=== PATIENT | female | born 1965 | race Caucasian/White ===

== ENCOUNTER → 2017-01-18 | Outpatient (CLI) | payer MEDICAID | LOC: FIMAGING 14:45 | PROVIDERS: ATTEND Surgery | DX: Z12.31 Encounter for screening mammogram for malignant neoplasm of breast (principal); Z85.3 Personal history of malignant neoplasm of breast | CPT/HCPCS: G0202 ==

== ENCOUNTER → 2017-01-23 | Outpatient (CLI) | payer MEDICAID | LOC: FIMAGING 09:37 | PROVIDERS: ATTEND Surgery | DX: R92.0 Mammographic microcalcification found on diagnostic imaging of breast (principal) | CPT/HCPCS: G0206 ==

== ENCOUNTER → 2017-07-31 | Outpatient (CLI) | payer MEDICAID | LOC: FIMAGING 10:13 | PROVIDERS: ATTEND Internal Medicine | DX: R92.8 Other abnormal and inconclusive findings on diagnostic imaging of breast (principal) | CPT/HCPCS: G0206 ==

== ENCOUNTER → 2018-01-24 | Outpatient (CLI) | payer MEDICAID | LOC: FIMAGING 14:22 | PROVIDERS: ATTEND Internal Medicine | DX: Z12.31 Encounter for screening mammogram for malignant neoplasm of breast (principal); Z85.3 Personal history of malignant neoplasm of breast ==

== ENCOUNTER → 2018-01-31 | Outpatient (CLI) | payer MEDICAID | LOC: FIMAGING 09:04 | PROVIDERS: ATTEND Internal Medicine | DX: R92.0 Mammographic microcalcification found on diagnostic imaging of breast (principal) ==

== ENCOUNTER 2018-09-23 12:01 | Emergency (ER) | payer SELFPAY ==
--- NOTE | 2018-09-23 12:39 | EDPHY ---
General Time Seen by Provider: 09/23/18 12:38 Narrative: CLINICAL IMPRESSION: Allergic reaction, urticaria ASSESSMENT/PLAN: Patient is a 53-year-old female with no significant medical history who presents to the emergency department after sustaining a possible allergic reaction. Patient brought in by EMS, given Solu-Medrol, Benadryl, epinephrine and Claritin prior to arrival. The patient is well appearing, happy, smiling and engaged and the examination. Patient is afebrile and in no acute distress. Physical examination reveals mild infraorbital edema without erythema and scant residual hives on abdomen. Patient with recent use of ibuprofen, no history of allergy or anaphylaxis. Patient has had no fever or URI symptoms, there are no signs of meningismus and do not suspect meningococcemia. There were no clinical findings to suggest SJS/TENS, varicella virus, measles, roseola, rubella or erythema infectiosum. History and physical examination is consistent with allergic reaction and urticaria, unknown precipitant. The patient responded well to IV medications and on repeat examination reported she was feeling much better. The patient was observed for a period of time and remained hemodynamically stable. There was no evidence of angioedema, hypoxia or rebound reaction. Patient will continue Medrol Dosepak, Pepcid, Zyrtec and Benadryl as needed. She is well established with her primary care provider Dr. Kelley although we do not have her listed. She understands the importance of follow-up and will call tomorrow to schedule an appointment for repeat examination. Strict return precautions discussed- patient is to return to the emergency department should for worsening rash, oral swelling, oral lesions, difficulty breathing, skin sloughing, lethargy, altered mentation or for any other concerning symptom. Patient verbalizes understanding and she is in agreement with this plan DIFFERENTIAL DX: Anaphylaxis, medication reaction, SJS/TENS, varicella, urticaria CHIEF COMPLAINT: Allergic reaction HPI: Patient is a 53-year-old female with no significant medical history who presents to the emergency department with a possible allergic reaction complaining of facial swelling and rash. Patient reports taking ibuprofen gelcaps shortly prior to her symptoms began. Patient reports feeling very itchy in her ears and bilateral eyes, she felt that the tissue around her eye started to swell and when she looked in the mirror noticed significant swelling. She started to become very anxious and proceeded to urgent care. Patient was treated for presumed allergic reaction with immediate improvement of her symptoms while in route to the emergency department. Patient took Claritin prior to EMS arrival, was given Solu-Medrol, Zantac, Benadryl and epinephrine additionally. Patient denies any oral swelling, persistent itchiness, vision changes, fever, chest pain, shortness of breath, nausea, vomiting or abdominal pain. She does report a remote similar reaction isolated to her face, has had extensive allergy testing in the past with several sensitivities. No history of anaphylaxis. No other recent medication changes, no change in facial products, detergents, soaps or lotions. No recent procedures done. On arrival to the emergency department she complains of mild persisted swelling around left eye. PMH: Denies Pertinent Past Surgical History: Noncontributory Family History: Noncontributory Social History: Occasional alcohol, denies illicit drug use or smoking REVIEW OF SYSTEMS: All other systems negative Constitutional: No fever, no chills, appetite change. Eyes: No discharge, vision change ENT: No sore throat, congestion, ear pain. Cardiovascular: No chest pain, no palpitations. Respiratory: No cough, no shortness of breath. Gastrointestinal: No abdominal pain, no vomiting, diarrhea. Genitourinary: No hematuria, dysuria, flank pain, pelvic pain Musculoskeletal: No back pain, joint swelling, joint pain, myalgias. Skin: Pruritic rash. No color change. Neurological: No headache, dizziness, weakness. PHYSICAL EXAM: General Appearance: Patient is well-developed, well-nourished and in no acute distress. She is not toxic-appearing. HENT: Normocephalic, atraumatic. There is mild periorbital soft tissue edema noted to the left side, no erythema , no warmth and no open wounds. Bilateral external ears are normal. Bilateral tympanic membranes are normal with pearly cornelius reflex. Nares are clear, mucosa is pink. Oropharynx is clear, uvula is midline. Posterior pharynx is clear. There is no angioedema. There is no tonsillar enlargement or exudate. Phonation is normal, no stridor. The dentition is normal. Eyes: PERRLA, no acute vision change, nystagmus, swelling, discharge, pain or photosensitivity. Conjunctiva pink, no pallor or injection. Neck: Supple, nontender, no lymphadenopathy, no midline pain, FROM, no meningismus. Respiratory: There are no retractions, lungs are clear to auscultation. Cardiac: Regular rate and rhythm, no murmurs or gallops. Gastrointestinal: Abdomen is soft, nontender, bowel sounds normal, no masses/ hernia, no rigidity, guarding or focal peritoneal findings. Neurological: Alert and oriented x 3, CN 2-12 grossly intact, normal gait no ataxia, DTR's intact, normal sensation and strength Skin: Few residual raised hives on patient central abdomen. Warm, dry, no nodules on palpation. Musculoskeletal: Extremities are symmetrical, full range of motion, no tenderness, deformity, swelling, or erythema. Psychiatric: Patient is oriented X 3, there is no agitation. MEDICAL DECISION MAKING: Patient was seen independently. Secondary supervising physician at time of evaluation was Dr. Sosa. Diagnosis: Allergic reaction. Summary: See Assessment and Plan for summary of ED visit Clinical lab tests: Not applicable. Independent visualization of images, tracing, or specimens: Not applicable Decision to obtain medical records or history from someone other than the patient: EMS Review / Summarize previous medical records: No Discussed patient with another provider: Yes, Dr. Sosa Patient Progress: Stable, discharge. - History Smoking Status: Never smoked - Objective Vital Signs: Initial Vital Signs Temperature (C) 36.7 C 09/23/18 12:09 Heart Rate 81 09/23/18 12:09 Respiratory Rate 18 09/23/18 12:09 Blood Pressure 131/87 H 09/23/18 12:09 O2 Sat (%) 100 09/23/18 12:09 O2 Delivery Mode Room Air Allergies/Adverse Reactions: azithromycin Allergy (Verified 09/23/18 12:09) Home Medications: Medication Instructions Recorded Diazepam [Valium] 5 mg PO TIDPRN PRN #15 tab 04/28/14 Lexapro 10 MG 04/28/14 methylPREDNISolone [Medrol Dose 1 each PO AD 6 Days ea 09/23/18 Hemanth] Departure - Departure Disposition: Home, Routine, Self-Care Clinical Impression: Urticaria Allergic reaction Qualifiers: Encounter type: initial encounter Qualified Code(s): T78.40XA - Allergy, unspecified, initial encounter Condition: Good Instructions: Methylprednisolone (By mouth), General Allergic Reaction (ED) Additional Instructions: DISCHARGE INSTRUCTIONS FROM YOUR DOCTOR Thank you for visiting our emergency department today. Please keep in mind that discharge from the emergency department does not mean that there is nothing wrong - it simply means that we have not identified an emergency condition that requires further evaluation or treatment in the hospital. You should always plan to follow up with primary care for re-evaluation of your condition in the next 2-3 days. Avoid any known allergens and exposures. Keep a diary of exposures and symptoms to determine any new allergies. Take Zyrtec 10 mg nightly. This is over the counter. Pepcid 40 mg daily. This is over the counter. Benadryl 25 mg every 4-6 hours as needed for breakthrough itching, hives and/or swelling. Medrol Dosepack (STEROID) as prescribed. More than 50% of people will notice resolution of allergy symptoms after starting this medication. BUT, over 50% of people will notice recurrence of allergy symptoms called rebound when the medication is stopped. If a steroid is taken close to allergy testing, the results will be affected. Schedule a follow-up visit with your primary care provider for re-evaluation next week. Watch closely for any signs of throat tightness and/or difficulty breathing. These symptoms can suggest a life threatening allergic reaction and require immediate attention of a medical professional. Return for recurrent facial swelling,swelling involving the mouth, lips, tongue , for difficulty breathing or swallowing, shortness of breath, wheezing,fainting , development of fever, for severe headache, neck stiffness, or for any other new, worsening, or worrisome symptoms. People present with illnesses and injuries in different ways, and it is always possible that we have missed something. You may always return for re-evaluation if symptoms worsen or if they are not improving or if you develop new/different symptoms. Again, thank you for choosing our emergency department. We hope that you feel better. Referrals: Patient,NotPresent [Unknown] - As per Instructions (Please call to schedule a follow-up with Dr. Kelley, let her know urine the emergency department today.) Prescriptions: methylPREDNISolone [Medrol Dose Hemanth] 1 each PO AD 6 Days ea
[2018-09-23 13:35] VITALS: BP 120/76
== END 2018-09-23 13:55 | disposition home or self-care (01) ==
LOC: EDUNIT#
DX: L50.0 Allergic urticaria (principal)

== ENCOUNTER → 2018-12-27 | Outpatient (CLI) | payer OTHER | LOC: FIMAGING 08:59 | PROVIDERS: ATTEND Internal Medicine | DX: R92.8 Other abnormal and inconclusive findings on diagnostic imaging of breast (principal) ==